=== PATIENT | female | born 1995 | race Caucasian/White ===

== ENCOUNTER 2018-08-17 16:13 | Emergency (ER) | payer OTHER, SELFPAY ==
[2018-08-17 16:29] LABS: Appearance,Urine CLEAR (Clear); Bilirubin,Urine Negative (Negative); Blood, Urine Negative (Negative); Color,Urine YELLOW (Yellow); Glucose,Urine (UA) Negative (Negative); Ketones,Urine TRACE (Negative); Leukocyte Esterase,Urine Negative (Negative); Microscopic, Urine URINE MICROSCOPIC (MICROSCOPIC); Nitrate,Urine Negative (Negative); Protein,Urine Negative (Negative); Specific Gravity, Urine 1.025 (1.005-1.030); Urobilinogen,Urine 0.2 EU/dl (0.2)
[2018-08-17 16:33] LABS: Urine Pregnancy, HCG Qual. Positive (Negative)
[2018-08-17 16:37] VITALS: BP 134/86; PULSE 108; RESP 20; TEMP 36.9; O2SAT 97; BMI 20.6
[2018-08-17 16:39] LABS: Bacteria,Urine 1+ /lpf; WBC,Urine Occasional #/hpf (0-3)
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
--- NOTE | 2018-08-17 17:33 | PC.NURSE ---
Lab coming to draw blood work.
--- NOTE | 2018-08-17 17:45 | PC.NURSE ---
rad staff came down to get pt for CTs, rad staff notified ER staff at this time that pt is reporting she would like to speak with ER MD prior to going up for CTs and also for her blood work to be resulted. Will notify ER
[2018-08-17 17:49] LABS: Basophils % 0.2 % (0.1-2.0); Eosinophils # 0.1 K/mm3 (0.0-0.4); Eosinophils % 1.1 % (0.1-12.0); Hematocrit 36.4 % (37.0-47.0); Lymphocytes # 3.6 K/mm3 (0.7-4.5); Lymphocytes % 27.1 % (10-50); Mean Corpuscular Hemoglobin 32.5 pg (27.0-31.2); Mean Corpuscular Volume 98.5 fl (81-99); Mean Platelet Volume 8.2 fl (7.4-10.4); Monocytes # 0.7 K/mm3 (0.1-1.0); Neutrophils # 8.9 K/mm3 (1.8-7.8); Neutrophils % 66.7 % (37.0-80.0); Platelet Count 176 K/mm3 (142-424); Red Blood Count 3.69 M/mm3 (4.20-5.40); Red Cell Distribution Width 12.9 % (11.5-17.5); White Blood Count 13.3 K/mm3 (4.8-10.8)
--- NOTE | 2018-08-17 18:02 | XR_ITS ---
EXAM: XR cervical spine 3V HISTORY: ITS.REASON: pain c6 area , midline ORDERING PHYSICIAN: Terrence Sparks MD PATIENT AGE: 23 years COMPARISON: None FINDINGS: Normal alignment. No fracture or dislocation. No lytic or blastic change. No significant degenerative change. The disc spaces are preserved. IMPRESSION: No acute finding
--- NOTE | 2018-08-17 18:09 | PC.NURSE ---
Pt to rad
[2018-08-17 18:38] LABS: HCG,Quantitative 26833 mIU/mL
[2018-08-17 18:50] VITALS: BP 123/75; PULSE 82; RESP 20; TEMP 36.9; O2SAT 100
== END 2018-08-17 18:50 | disposition home or self-care (01) ==
PROVIDERS: Emergency Provider Emergency Medicine
DX: S16.1XXA Strain of muscle, fascia and tendon at neck level, initial encounter (principal); S09.90XA Unspecified injury of head, initial encounter; V87.7XXA Person injured in collision between other specified motor vehicles (traffic), initial encounter
CPT/HCPCS: 72040; 81001; 81025; 84702; 85025; 99283